=== PATIENT | female | born 1955 | race Hispanic/Latino ===

== ENCOUNTER 2018-08-01 05:41 | Day surgery (SDC) | payer MEDICARE ==
[~2018-08-01 05:41] MED LIST: XYLOCAINE 2%/ EPI 1:200,000 INFILTRATI ONE; mitoMYcin 0.02% Opth Soln *OR USE ONLY OS ONE
[2018-08-01] MEDS ORDERED: TETRACAINE 0.5% OS PRN ×2 (06:26→06:59)
[2018-08-01] MEDS: VIGAMOX OS SCH ×3 (06:55→07:05)
[2018-08-01] MEDS ORDERED: XYLOCAINE 2%/ EPI 1:200,000 INFILTRATI ONE ×2 (06:59→10:13)
[2018-08-01] MEDS: TETRACAINE 0.5% OS SCH ×2 (07:00→07:05)
[2018-08-01] MEDS ORDERED: SUBLIMAZE ONE (07:07)
[2018-08-01] MEDS ORDERED: VERSED ONE (07:07)
[2018-08-01] MEDS ORDERED: PRED FORTE 1% ONE (08:45)
[2018-08-01] MEDS ORDERED: DIAMOX ONE (08:47)
[2018-08-01 08:58] VITALS: BP 162/88
[2018-08-01] MEDS ORDERED: PRED FORTE 1% OS SCH (10:00)
[2018-08-01] MEDS ORDERED: mitoMYcin 0.02% Opth Soln *OR USE ONLY OS ONE (10:20)
[2018-08-01] MEDS ORDERED: mitoMYcin 0.02% Opth Soln *OR USE ONLY OP NR (10:30)
--- NOTE | 2018-08-01 10:43 | Operative Report ---
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 ENVIRONMENTAL EPIDEMIOLOGIST SURGEON: none ANESTHESIA: Monitored anesthesia care TEXTILE COATING MACHINE OPERATOR: COMPLICATIONS: None ALLERGIES: Codeine kiwi PREOPERATIVE NOTE: The risks, benefits and alternatives of surgery were explained to the patient who after confirmining understanding elected to proceed with surgery. The risks discussed included but were not limited to infection, further surgery, loss of vision, loss of the eye. The patient had multiple opportunities to ask questions and have them answered. Preoperative instruction sheet was provided and explained to the patient and/or family. PROGNOSIS: Excellent INDICATIONS FOR SURGERY: Distortion of vision from the lesion. Without treatment, permanent visual loss is expected. OPERATIVE REPORT: The patient was prepped by applying a Betadine scrub to the periorbital area, the adjacent cheek, and the forehead. The prepped areas were dried with sterile gauze. The patient was draped, and a speculum was placed between the eyelids. 2% lidocaine was injected below the body of the pterygium. A cut-down was made through the body of the pterygium to bare sclera. The dissection was then carried towards the limbus, elevating up the pterygium. Moderate bleeding was encountered and treated with cautery. Once the dissection was taken to the limbus, the head of the pterygium was dissected off the cornea with a Tooke knife. The pterygium was densely scarred into the underlying stroma, making the dissection process difficult to perform. A superficial dissection plane was made in a few areas. The mass of fibrous growth was then excised from the limbus. A yonatan bur on a high-speed drill was used to smooth the area of the cornea where the pterygium was removed. This was done in order to leave the tissue smooth and minimize the chance of recurrence. A rough limbal surface increases the risks of irritation, inflammation, and the possibility of postoperative recurrence in the eye. The limbal area was smoothed with the yonatan bur, and care was taken not to remove too much tissue, leaving the cornea ectatic. After the scar tissue was removed, Mitomycin-C was placed on bare sclera x 60 secs on the eye with Weck-nadia sponges and immediately irrigated off. The irrigation was done liberally to prevent any Mitomycin-C contamination to the rest of the field and the eye. The cornea was irrigated with balanced salt solution. Once the pterygium was excised and the cornea smoothed, cautery was used to control any bleeding in the bed of bare sclera. The peripheral edges of remaining conjunctiva around the bare sclera had its edges undermined slightly to allow it to be fixed to the underlying sclera when the tissue adhesive would be applied. Calipers were then used to measure the width and length of the area of bare sclera. After marking the tips of the calipers, they were used to demarco the amniotic graft. Scissors were next used to first undermine and then excise the graft. Fine-tooth forceps were used carefully to elevate the graft and moved to the area of the bare sclera. It was moved carefully to make sure that first of all the epithelial side remained upward . After the graft was found to be suitable for the area to be covered, it was temporarily moved off the bare sclera and Tisseel tissue adhesive was applied in its two components as separate stages over the area of bare sclera. The graft was placed back in position and its edges were first pushed down 360 to allow firm fixation. The central area was also pushed down with firm pressure from a flat surfaced instrument. Next the edges of the previously undermined adjacent conjunctiva were pushed down to allow firm fixation. The flap was allowed to stay unmanipulated for ten minutes prior to removing the lid speculum. MEDICATIONS APPLIED AT END OF SURGERY: bandage Contact lens was placed onto the eye fallowed by the application of Vigamox. DISCHARGE SUMMARY: The patient was released in stable condition. The patient and those with the patient were given a written sheet of postoperative instructions and counseling on any abnormal laboratory studies. They are to call immediately for difficulties.
--- NOTE | 2018-08-01 10:45 | Short Stay Summary ---
Short Stay Documentation Date of service: 08/01/18 - History H&P: obtained from office - Allergies and Medications Current Medications: Allergies codeine Allergy (Verified 07/22/18 14:33) Anaphylaxis kiwi Allergy (Verified 07/22/18 14:33) Anaphylaxis and Hives Home Medications Medication Instructions Recorded Confirmed Last Taken Type Aspirin EC [Aspirin Enteric Coated 81 mg PO QDAY 07/22/18 07/22/18 Unknown History TAB] Glimepiride [Amaryl] 2 mg PO BID 07/22/18 07/22/18 Unknown History Lisinopril/Hydrochlorothiazide 1 each PO DAILY 07/22/18 07/22/18 Unknown History [Zestoretic 10-12.5 mg Tablet] Metformin HCl [Glucophage] 1,000 mg PO BID 07/22/18 07/22/18 Unknown History Multivit-Mins/FA/Lycop/Lut/Ala 1 each PO DAILY 07/22/18 07/22/18 Unknown History [Multi-Betic Tablet] Pravastatin Sodium [Pravachol] 40 mg PO DAILY 07/22/18 07/22/18 Unknown History Active Medications Mitomycin (Mitomycin 0.02% Opth Soln *Or Use Only*) 2 drops OP ONCE NR Stop: 08/01/18 11:30 Moxifloxacin HCl (Vigamox) 1 drops OS Q5MIN TRINY Stop: 08/03/18 06:24 Last Admin: 08/01/18 07:05 Dose: 1 drops Documented by: Prednisolone Acetate (Pred Forte 1%) 1 drops OS QID TRINY - Brief post op/procedure progress note Date of procedure: 08/01/18 Pre-op diagnosis: left pterygium Post-op diagnosis: same Procedure: Pterygium excision with mitomycin C and amniotic membrane placement left eye Anesthesia: local Surgeon: DELLA ZAVALA Estimated blood loss: minimal Pathology: list (pterygium) Specimen disposition: to lab Condition: stable - Disposition Condition at discharge: Good Disposition: DC-01 TO HOME OR SELFCARE - Discharge Diagnoses (1) Pterygium of eye Status: Resolved Qualifiers: Laterality: left Qualified Code(s): H11.002 - Unspecified pterygium of left eye Short Stay Discharge Plan Follow up with: LILY RODRIGUEZ MD [Primary Care Provider] - 7 Days
== END 2018-08-01 11:55 | disposition home or self-care (01) ==
LOC: OR 05:41
DX: H11.002 Unspecified pterygium of left eye (principal); H53.9 Unspecified visual disturbance; E78.00 Pure hypercholesterolemia, unspecified; I10 Essential (primary) hypertension; M19.90 Unspecified osteoarthritis, unspecified site; Z79.899 Other long term (current) drug therapy; Z79.84 Long term (current) use of oral hypoglycemic drugs; Z79.82 Long term (current) use of aspirin; Z88.5 Allergy status to narcotic agent; Z87.891 Personal history of nicotine dependence; Z91.018 Allergy to other foods; Z98.890 Other specified postprocedural states; Z80.8 Family history of malignant neoplasm of other organs or systems
CPT/HCPCS: 65426; 82962; 88304; C9250; J7315; V2790; J2250; J3010

== ENCOUNTER 2018-08-29 09:01 | Day surgery (SDC) | payer MEDICARE ==
[~2018-08-29 09:01] MED LIST changes: +TETRACAINE 0.5% OD PRN; -mitoMYcin 0.02% Opth Soln *OR USE ONLY OS ONE
[2018-08-29] MEDS ORDERED: mitoMYcin 0.02% Opth Soln *OR USE ONLY OP NR (09:39)
[2018-08-29] MEDS ORDERED: PRED FORTE 1% OD SCH (10:00)
[2018-08-29] MEDS: VIGAMOX OD SCH ×3 (10:35→10:45)
[2018-08-29] MEDS ORDERED: VERSED ONE (10:57)
[2018-08-29] MEDS ORDERED: SUBLIMAZE ONE (10:57)
[2018-08-29] MEDS ORDERED: DIAMOX PO NR (11:00)
--- NOTE | 2018-08-29 11:49 | Operative Report ---
Operative Report Operative Report: 08/29/2018 PREOPERATIVE DIAGNOSIS: Pterygium with visual distortion, _right_eye POSTOPERATIVE DIAGNOSIS: Pterygium with visual distortion, right eye OPERATIVE PROCEDURE: Excision of pterygium with mitomycin C and amniotic graft membrane right eye SURGEON: Soo Valle M.D. FRATERNITY HOUSE COOK SURGEON: betzaida ANESTHESIA: Topical TRAINING AND DEVELOPMENT PROJECT LEADER: COMPLICATIONS: None ALLERGIES: [place]loroquine PREOPERATIVE NOTE: The risks, benefits and alternatives of surgery were explained to the patient who after confirmining understanding elected to proceed with surgery. The risks discussed included but were not limited to infection, further surgery, loss of vision, loss of the eye. The patient had multiple opportunities to ask questions and have them answered. Preoperative instruction sheet was provided and explained to the patient and/or family. PROGNOSIS: Excellent INDICATIONS FOR SURGERY: Distortion of vision from the lesion. Without treatment, permanent visual loss is expected. OPERATIVE REPORT: The patient was prepped by applying a Betadine scrub to the periorbital area, the adjacent cheek, and the forehead. The prepped areas were dried with sterile gauze. The patient was draped, and a speculum was placed between the eyelids. 2% lidocaine was injected below the body of the pterygium. A cut-down was made through the body of the pterygium to bare sclera. The dissection was then carried towards the limbus, elevating up the pterygium. Moderate bleeding was encountered and treated with cautery. Once the dissection was taken to the limbus, the head of the pterygium was dissected off the cornea with a Tooke knife. The pterygium was densely scarred into the underlying stroma, making the dissection process difficult to perform. A superficial dissection plane was made in a few areas. The mass of fibrous growth was then excised from the limbus. A yonatan bur on a high-speed drill was used to smooth the area of the cornea where the pterygium was removed. This was done in order to leave the tissue smooth and minimize the chance of recurrence. A rough limbal surface increases the risks of irritation, inflammation, and the possibility of postoperative recurrence in the eye. The limbal area was smoothed with the yonatan bur, and care was taken not to remove too much tissue, leaving the cornea ectatic. After the scar tissue was removed, Mitomycin-C was placed on bare sclera x 60 secs on the eye with Weck-nadia sponges and immediately irrigated off. The irrigation was done liberally to prevent any Mitomycin-C contamination to the rest of the field and the eye. The cornea was irrigated with balanced salt solution. Once the pterygium was excised and the cornea smoothed, cautery was used to control any bleeding in the bed of bare sclera. The peripheral edges of remaining conjunctiva around the bare sclera had its edges undermined slightly to allow it to be fixed to the underlying sclera when the tissue adhesive would be applied. Calipers were then used to measure the width and length of the area of bare sclera. After marking the tips of the calipers, they were used to demarco the amniotic graft. Scissors were next used to first undermine and then excise the graft. Fine-tooth forceps were used carefully to elevate the graft and moved to the area of the bare sclera. It was moved carefully to make sure that first of all the epithelial side remained upward . After the graft was found to be suitable for the area to be covered, it was temporarily moved off the bare sclera and Tisseel tissue adhesive was applied in its two components as separate stages over the area of bare sclera. The graft was placed back in position and its edges were first pushed down 360 to allow firm fixation. The central area was also pushed down with firm pressure from a flat surfaced instrument. Next the edges of the previously undermined adjacent conjunctiva were pushed down to allow firm fixation. The flap was allowed to stay unmanipulated for ten minutes prior to removing the lid speculum. MEDICATIONS APPLIED AT END OF SURGERY: bandage Contact lens was placed onto the eye fallowed by the application of Vigamox. DISCHARGE SUMMARY: The patient was released in stable condition. The patient and those with the patient were given a written sheet of postoperative instructions and counseling on any abnormal laboratory studies. They are to call immediately for difficulties.
[2018-08-29] MEDS ORDERED: mitoMYcin 0.02% Opth Soln *OR USE ONLY OD ONE (11:50)
[2018-08-29] MEDS ORDERED: XYLOCAINE 2%/ EPI 1:200,000 INFILTRATI ONE (11:51)
--- NOTE | 2018-08-29 11:51 | Short Stay Summary ---
Short Stay Documentation Date of service: 08/29/18 - History H&P: obtained from office - Allergies and Medications Current Medications: Allergies codeine Allergy (Verified 08/26/18 15:12) Anaphylaxis kiwi Allergy (Verified 08/26/18 15:12) Anaphylaxis and Hives Home Medications Medication Instructions Recorded Confirmed Last Taken Type Aspirin EC [Aspirin Enteric Coated 81 mg PO QDAY 07/22/18 08/26/18 07/31/18 09:00 History TAB] Glimepiride [Amaryl] 2 mg PO BID 07/22/18 08/26/18 07/31/18 21:00 History Lisinopril/Hydrochlorothiazide 1 each PO DAILY 07/22/18 08/26/18 07/31/18 21:00 History [Zestoretic 10-12.5 mg Tablet] Metformin HCl [Glucophage] 1,000 mg PO BID 07/22/18 08/26/18 07/31/18 21:00 History Multivit-Mins/FA/Lycop/Lut/Ala 1 each PO DAILY 07/22/18 08/26/18 07/31/18 21:00 History [Multi-Betic Tablet] Pravastatin Sodium [Pravachol] 40 mg PO DAILY 07/22/18 08/26/18 07/30/18 09:00 History Active Medications Acetazolamide (Diamox) 500 mg PO ONCE NR Stop: 08/29/18 16:00 Mitomycin (Mitomycin 0.02% Opth Soln *Or Use Only*) 2 drops OP ONCE NR Stop: 08/29/18 16:00 Moxifloxacin HCl (Vigamox) 1 drops OD Q5MIN TRINY Stop: 08/29/18 16:00 Last Admin: 08/29/18 10:45 Dose: 1 drops Documented by: Prednisolone Acetate (Pred Forte 1%) 1 drops OD QID TRINY Tetracaine HCl (Tetracaine 0.5%) 1 drops OD Q5M PRN PRN Reason: Pain, Mild (1-3) Stop: 08/29/18 16:00 Last Admin: 08/29/18 10:35 Dose: 1 drops Documented by: - Brief post op/procedure progress note Date of procedure: 08/29/18 Pre-op diagnosis: right pterygium Post-op diagnosis: same Procedure: Pterygium excision with mitomycin C and amniotic breath membrane placement Anesthesia: MAC, local Surgeon: DELLA ZAVALA Estimated blood loss: none Pathology: list (nasal and temporal pterygium) Specimen disposition: to lab Condition: stable - Disposition Condition at discharge: Good Disposition: TO HOME OR SELFCARE - Discharge Diagnoses (1) Pterygium of eye Status: Resolved Qualifiers: Laterality: right Qualified Code(s): H11.001 - Unspecified pterygium of right eye Short Stay Discharge Plan Follow up with: LILY RODRIGUEZ MD [Primary Care Provider] - 7 Days
[2018-08-29 12:28] VITALS: BP 156/78
== END 2018-08-29 12:25 | disposition home or self-care (01) ==
LOC: OR 09:01
DX: H11.001 Unspecified pterygium of right eye (principal); E78.00 Pure hypercholesterolemia, unspecified; I10 Essential (primary) hypertension; M19.90 Unspecified osteoarthritis, unspecified site; Z80.8 Family history of malignant neoplasm of other organs or systems; Z79.899 Other long term (current) drug therapy; Z88.5 Allergy status to narcotic agent; Z79.84 Long term (current) use of oral hypoglycemic drugs; Z87.891 Personal history of nicotine dependence; Z79.82 Long term (current) use of aspirin; Z98.890 Other specified postprocedural states; Z88.8 Allergy status to other drugs, medicaments and biological substances
CPT/HCPCS: 65426; 88304; C9250; J2250; J3010; J7315; V2790

== ENCOUNTER 2018-11-28 09:17 | Day surgery (SDC) | payer MEDICARE ==
[2018-11-28] MEDS: MYDRIACYL OS SCH ×2 (09:56→10:07)
[2018-11-28] MEDS: VIGAMOX OS SCH ×3 (09:59→10:19)
[2018-11-28] MEDS: TETRACAINE 0.5% OS SCH ×4 (10:00→10:20)
[2018-11-28] MEDS: AK-Dilate OS SCH ×2 (10:03→10:23)
[2018-11-28] MEDS ORDERED: XYLOCAINE MPF 1% INFILTRATI ONE (10:25)
[2018-11-28] MEDS ORDERED: WATER FOR IRRIG STERILE IR ONE (10:25)
[2018-11-28] MEDS ORDERED: DIAMOX PO ONE (10:47)
--- NOTE | 2018-11-28 10:48 | Operative Report ---
Operative Report Operative Report: PATIENT'S NAME: DATE OF : DATE OF SURGERY: 11/28/2018 PREOPERATIVE DIAGNOSIS: Cataract left eye POSTOPERATIVE DIAGNOSIS: Same OPERATIVE PROCEDURE: Phacoemulsification with intraocular lens implantation, left eye SURGEON: Soo Valle M.D. CLERICAL AND ADMINISTRATIVE WORKERS SURGEON: Latia Lens: [id number] 20.5 D ANESTHESIA: Monitored anesthesia care in combination with topical and intracameral anesthesia because of the established specific risk of reflux, arrhythmias, or anxiety attacks associated with ocular manipulation, as well as the difficulty of the fly worker to manage such potentially catastrophic events while simultaneously attempting to complete the surgical procedure and was deemed necessary for the patient's safety to have an Woods Boss present during the procedure whenever possible. An Woods Boss was utilized to regulate the intravenous sedation of the patient so the patient was cooperative yet not asleep in order for the patient to successfully maintain fixation of the eye on the operating light of the microscope. COMPLICATIONS: No surgical complications No blood loss. ALLERGIES: Codeine, kiwi PROGNOSIS: Excellent INDICATIONS FOR SURGERY: The patient is undergoing surgery in the hopes of eliminating or improving these visual difficulties. PROCEDURE: After arriving at the surgery center, the patient was given topical anesthetic and dilating drops, as noted in the record. The patient was then taken into the operating room and given more anesthetic drops. The eyelids, lashes, and lid margins were scrubbed with Betadine solution, and the patient was draped. The Nurse Woods Boss administered IV sedation and monitored the patient during the procedure. The eye was then fixated with a 0.12, and a stab incision was made in the peripheral clear cornea into the anterior chamber. This was made on my left side. Viscoelastic was next used to fill the anterior chamber. The eye was once again fixated with the 0.12 forceps and a keratome was used make an incision in clear cornea peripherally on my right hand side temporally. The capsule forceps were used to open the central anterior capsule and then make a continuous round capsulotomy. Hydrodissection was carried out utilizing a cannula and balanced salt solution to delineate the cortical material from the capsule and the nucleus from the cortical material. The phaco tip was introduced into the eye and used to remove the anterior cortical material in the area of the capsulotomy. Then the phaco tip was buried into the nucleus, and a chopping instrument was introduced into the eye and used to provide countertraction in the nucleus between this instrument and the phaco tip fracturing the nucleus. This procedure was repeated multiple times, providing multiple small segments of the lens, and then the phaco tip was used to remove each of these segments. An I/A tip was then used to remove the remaining cortex. The anterior chamber was refilled with viscoelastic. An one-piece, acrylic intraocular lens was then placed into an inserting cartridge. The tip of the inserting cartridge was introduced into the keratome incision and into the anterior chamber. The implant was gently advanced through the cartridge and into the eye, where it unfolded, and both haptics were placed in the capsular bag, where it centered nicely and appeared to be well fixated. After placement of the intraocular lens, the I~and~A handpiece was placed back into the eye and used to remove the viscoelastic, including viscoelastic that was behind the optic of the intraocular lens. The anterior chamber was then filled with balanced salt solution, and hydration of the wound was used to cause swelling of the wound and more appropriate watertight closure. When the wound was found to be firm, the patient was asked to comment on how bright the light was. If there was no light perception at all or if the light was substantially dimmer than during the rest of the surgery, the amount of fluid in the eye was decompressed to lower the intraocular pressure until the patient could see the bright light again. This was done to avoid any damage or decreased blood flow to the optic nerve. MEDICATIONS APPLIED AT END OF SURGERY: One drop of Pred Forte and Vigamox The patient was given a shield to wear at night and was instructed not to rub or push on the eye. DISCHARGE SUMMARY: The patient was released in stable condition. The patient and those with the patient were given a written sheet of postoperative instructions and counseling on any abnormal laboratory studies. The patient is to see us tomorrow for follow-up in the office and is to call immediately for any difficulties. Soo Valle M.D. Date
--- NOTE | 2018-11-28 10:50 | Short Stay Summary ---
Short Stay Documentation Date of service: 11/28/18 - History H&P: obtained from office - Allergies and Medications Current Medications: Allergies codeine Allergy (Verified 08/26/18 15:12) Anaphylaxis kiwi Allergy (Verified 08/26/18 15:12) Anaphylaxis and Hives Home Medications Medication Instructions Recorded Confirmed Last Taken Type Aspirin EC [Aspirin Enteric Coated 81 mg PO QDAY 07/22/18 11/28/18 11/27/18 09:00 History TAB] Glimepiride [Amaryl] 2 mg PO BID 07/22/18 11/28/18 11/27/18 17:00 History Lisinopril/Hydrochlorothiazide 1 each PO DAILY 07/22/18 11/28/18 11/27/18 17:00 History [Zestoretic 10-12.5 mg Tablet] Metformin HCl [Glucophage] 1,000 mg PO BID 07/22/18 11/28/18 11/27/18 17:00 History Multivit-Mins/FA/Lycop/Lut/Ala 1 each PO DAILY 07/22/18 11/28/18 11/27/18 History [Multi-Betic Tablet] Pravastatin Sodium [Pravachol] 40 mg PO DAILY 07/22/18 11/28/18 11/26/18 21:00 History Active Medications Acetazolamide (Diamox) 500 mg PO ONCE ONE Stop: 11/28/18 10:48 Moxifloxacin HCl (Vigamox) 1 drops OS Q5MIN TRINY Stop: 11/28/18 16:00 Last Admin: 11/28/18 10:19 Dose: 1 drops Documented by: Phenylephrine HCl (Ak-Dilate) 1 drops OS Q5MIN TRINY Stop: 11/28/18 16:00 Last Admin: 11/28/18 10:23 Dose: 1 drops Documented by: Prednisolone Acetate (Pred Forte 1%) 1 drops OS ONCE NR Tetracaine HCl (Tetracaine 0.5%) 1 drops OS Q5M TRINY Stop: 11/28/18 16:00 Last Admin: 11/28/18 10:20 Dose: 1 drops Documented by: Tropicamide (Mydriacyl) 1 drops OS Q5MIN TRINY Stop: 11/28/18 16:00 Last Admin: 11/28/18 10:07 Dose: 1 drops Documented by: - Brief post op/procedure progress note Date of procedure: 11/28/18 Pre-op diagnosis: left cataract Post-op diagnosis: same Procedure: Phacoemulsification with intraocular lens insertion left eye Anesthesia: MAC, local Surgeon: DELLA ZAVALA Estimated blood loss: none Pathology: none Condition: stable - Disposition Condition at discharge: Good Disposition: DC-01 TO HOME OR SELFCARE - Discharge Diagnoses (1) Cortical age-related cataract of left eye Status: Resolved Short Stay Discharge Plan Follow up with: LILY RODRIGUEZ MD [Primary Care Provider] - 7 Days
[2018-11-28] MEDS ORDERED: PRED FORTE 1% OS NR (11:00)
[2018-11-28 12:01] VITALS: BP 155/74
[2018-11-28] MEDS ORDERED: DIAMOX ONE (13:05)
== END 2018-11-28 11:55 | disposition home or self-care (01) ==
LOC: OR 09:17
DX: E11.36 Type 2 diabetes mellitus with diabetic cataract (principal); H25.012 Cortical age-related cataract, left eye; E78.00 Pure hypercholesterolemia, unspecified; I10 Essential (primary) hypertension; M19.90 Unspecified osteoarthritis, unspecified site; Z98.890 Other specified postprocedural states; Z80.8 Family history of malignant neoplasm of other organs or systems; Z88.5 Allergy status to narcotic agent; Z79.82 Long term (current) use of aspirin; Z79.84 Long term (current) use of oral hypoglycemic drugs; Z79.899 Other long term (current) drug therapy; Z87.891 Personal history of nicotine dependence; Z98.49 Cataract extraction status, unspecified eye; Z88.8 Allergy status to other drugs, medicaments and biological substances; Z86.2 Personal history of diseases of the blood and blood-forming organs and certain disorders involving the immune mechanism
CPT/HCPCS: 82962; V2632

== ENCOUNTER 2018-12-12 05:48 | Day surgery (SDC) | payer MEDICARE ==
[~2018-12-12 05:48] MED LIST changes: -TETRACAINE 0.5% OD PRN; +XYLOCAINE 1% MPF 5 mL IJ ONE; -XYLOCAINE 2%/ EPI 1:200,000 INFILTRATI ONE
[2018-12-12] MEDS ORDERED: AK-Dilate OD SCH (06:00)
[2018-12-12] MEDS ORDERED: TETRACAINE 0.5% OD SCH (06:00)
[2018-12-12] MEDS ORDERED: VIGAMOX OD SCH (06:00)
[2018-12-12] MEDS ORDERED: MYDRIACYL OD SCH (06:00)
[2018-12-12] MEDS ORDERED: DIAMOX PO NR (08:42)
--- NOTE | 2018-12-12 08:43 | Operative Report ---
Operative Report Operative Report: PATIENT'S NAME: DATE OF : DATE OF SURGERY: 12/12/2018 PREOPERATIVE DIAGNOSIS: Cataract right eye POSTOPERATIVE DIAGNOSIS: Same OPERATIVE PROCEDURE: Phacoemulsification with intraocular lens implantation, right eye SURGEON: Soo Valle M.D. CYCLE SPECIALIST SURGEON: Latia Lens: [id number] 18.0 D ANESTHESIA: Monitored anesthesia care in combination with topical and intracameral anesthesia because of the established specific risk of reflux, arrhythmias, or anxiety attacks associated with ocular manipulation, as well as the difficulty of the welder and fitter to manage such potentially catastrophic events while simultaneously attempting to complete the surgical procedure and was deemed necessary for the patient's safety to have an Debt Collection Specialist present during the procedure whenever possible. An Debt Collection Specialist was utilized to regulate the intravenous sedation of the patient so the patient was cooperative yet not asleep in order for the patient to successfully maintain fixation of the eye on the operating light of the microscope. COMPLICATIONS: No surgical complications No blood loss. ALLERGIES: Codeine PROGNOSIS: Excellent INDICATIONS FOR SURGERY: The patient is undergoing surgery in the hopes of eliminating or improving these visual difficulties. PROCEDURE: After arriving at the surgery center, the patient was given topical anesthetic and dilating drops, as noted in the record. The patient was then taken into the operating room and given more anesthetic drops. The eyelids, lashes, and lid margins were scrubbed with Betadine solution, and the patient was draped. The Nurse Debt Collection Specialist administered IV sedation and monitored the patient during the procedure. The eye was then fixated with a 0.12, and a stab incision was made in the peripheral clear cornea into the anterior chamber. This was made on my left side. Viscoelastic was next used to fill the anterior chamber. The eye was once again fixated with the 0.12 forceps and a keratome was used make an incision in clear cornea peripherally on my right hand side temporally. The capsule forceps were used to open the central anterior capsule and then make a continuous round capsulotomy. Hydrodissection was carried out utilizing a cannula and balanced salt solution to delineate the cortical material from the capsule and the nucleus from the cortical material. The phaco tip was introduced into the eye and used to remove the anterior cortical material in the area of the capsulotomy. Then the phaco tip was buried into the nucleus, and a chopping instrument was introduced into the eye and used to provide countertraction in the nucleus between this instrument and the phaco tip fracturing the nucleus. This procedure was repeated multiple times, providing multiple small segments of the lens, and then the phaco tip was used to remove each of these segments. An I/A tip was then used to remove the remaining cortex. The anterior chamber was refilled with viscoelastic. An one-piece, acrylic intraocular lens was then placed into an inserting cartridge. The tip of the inserting cartridge was introduced into the keratome incision and into the anterior chamber. The implant was gently advanced through the cartridge and into the eye, where it unfolded, and both haptics were placed in the capsular bag, where it centered nicely and appeared to be well fixated. After placement of the intraocular lens, the I~and~A handpiece was placed back into the eye and used to remove the viscoelastic, including viscoelastic that was behind the optic of the intraocular lens. The anterior chamber was then filled with balanced salt solution, and hydration of the wound was used to cause swelling of the wound and more appropriate watertight closure. When the wound was found to be firm, the patient was asked to comment on how bright the light was. If there was no light perception at all or if the light was substantially dimmer than during the rest of the surgery, the amount of fluid in the eye was decompressed to lower the intraocular pressure until the patient could see the bright light again. This was done to avoid any damage or decreased blood flow to the optic nerve. MEDICATIONS APPLIED AT END OF SURGERY: One drop of Pred Forte and Vigamox The patient was given a shield to wear at night and was instructed not to rub or push on the eye. DISCHARGE SUMMARY: The patient was released in stable condition. The patient and those with the patient were given a written sheet of postoperative instructions and counseling on any abnormal laboratory studies. The patient is to see us tomorrow for follow-up in the office and is to call immediately for any difficulties. Soo Valle M.D. Date
--- NOTE | 2018-12-12 08:44 | Short Stay Summary ---
Short Stay Documentation Date of service: 12/12/18 - History H&P: obtained from office - Allergies and Medications Current Medications: Allergies codeine Allergy (Verified 08/26/18 15:12) Anaphylaxis kiwi Allergy (Verified 08/26/18 15:12) Anaphylaxis and Hives Home Medications Medication Instructions Recorded Confirmed Last Taken Type Aspirin EC [Aspirin Enteric Coated 81 mg PO QDAY 07/22/18 12/03/18 11/27/18 09:00 History TAB] Glimepiride [Amaryl] 2 mg PO BID 07/22/18 12/03/18 11/27/18 17:00 History Lisinopril/Hydrochlorothiazide 1 each PO DAILY 07/22/18 12/03/18 11/27/18 17:00 History [Zestoretic 10-12.5 mg Tablet] Metformin HCl [Glucophage] 1,000 mg PO BID 07/22/18 12/03/18 11/27/18 17:00 History Multivit-Mins/FA/Lycop/Lut/Ala 1 each PO DAILY 07/22/18 12/03/18 11/27/18 History [Multi-Betic Tablet] Pravastatin Sodium [Pravachol] 40 mg PO DAILY 07/22/18 12/03/18 11/26/18 21:00 History Active Medications Acetazolamide (Diamox) 500 mg PO ONCE ONE Stop: 12/12/18 08:43 Moxifloxacin HCl (Vigamox) 1 drops OD Q5MIN TRINY Stop: 12/12/18 12:00 Phenylephrine HCl (Ak-Dilate) 1 drops OD Q5MIN TRINY Stop: 12/12/18 12:00 Phenylephrine HCl (Neofrin) 1 drops OD Q5MIN TRINY Stop: 12/14/18 09:01 Tetracaine HCl (Tetracaine 0.5%) 1 drops OD Q5M TRINY Stop: 12/12/18 12:00 Tropicamide (Mydriacyl) 1 drops OD Q5MIN TRINY Stop: 12/12/18 12:00 - Brief post op/procedure progress note Date of procedure: 12/12/18 Pre-op diagnosis: right cataract Post-op diagnosis: same Procedure: Phacoemulsification with intraocular lens insertion right eye Anesthesia: MAC, local Surgeon: DELLA ZAVALA Estimated blood loss: none Pathology: none Condition: stable - Disposition Condition at discharge: Good Disposition: [id number]-01 TO HOME OR SELFCARE - Discharge Diagnoses (1) Cortical age-related cataract of right eye Status: Resolved Short Stay Discharge Plan Follow up with: LILY RODRIGUEZ MD [Primary Care Provider] - 7 Days
[2018-12-12] MEDS ORDERED: NEOFRIN OD SCH (09:00)
[2018-12-12] MEDS ORDERED: PRED FORTE 1% OD SCH (10:00)
[2018-12-12 11:50] VITALS: BP 151/75
== END 2018-12-12 09:30 | disposition home or self-care (01) ==
LOC: OR 05:48
DX: E11.36 Type 2 diabetes mellitus with diabetic cataract (principal); H25.011 Cortical age-related cataract, right eye; E78.00 Pure hypercholesterolemia, unspecified; I10 Essential (primary) hypertension; M19.90 Unspecified osteoarthritis, unspecified site; Z88.5 Allergy status to narcotic agent; Z79.899 Other long term (current) drug therapy; Z87.891 Personal history of nicotine dependence; Z79.84 Long term (current) use of oral hypoglycemic drugs; Z79.82 Long term (current) use of aspirin; Z98.42 Cataract extraction status, left eye; Z80.8 Family history of malignant neoplasm of other organs or systems; Z88.8 Allergy status to other drugs, medicaments and biological substances; Z86.2 Personal history of diseases of the blood and blood-forming organs and certain disorders involving the immune mechanism
CPT/HCPCS: 82962; V2632